=== PATIENT | female | born 1960 | race Caucasian/White ===

== ENCOUNTER → 2019-03-08 09:48 | Outpatient (CLI) | payer OTHER, SELFPAY ==
[2019-03-08 11:05] LABS: Anion Gap 8 (5-15); Chloride 104 mmol/L (98-107); Potassium 4.1 mmol/L (3.5-5.1); Sodium Level 140 mmol/L (136-145)
== END ==
PROVIDERS: Referring Provider Otolaryngology Otolaryngology/Facial Plastic Surgery; Visit Provider Otolaryngology Otolaryngology/Facial Plastic Surgery
DX: H81.09 Meniere's disease, unspecified ear (principal)
CPT/HCPCS: 36415; 80051